=== PATIENT | female | born 1975 | race Two or more races ===

== ENCOUNTER 2017-12-07 16:54 | Emergency (ER) | payer OTHER ==
[2017-12-07 17:08] VITALS: BP 131/90
--- NOTE | 2017-12-07 17:09 | EDPHY ---
H & P Time Seen by Provider: 12/07/17 17:08 HPI/ROS: CHIEF COMPLAINT: Right eye redness HISTORY OF PRESENT ILLNESS: This is a 42-year-old female with a history of hyperthyroidism who presents with 4 days of right eye redness. She has begun to notice some eye discomfort and itching. This morning she had some matting of the right eye, but it was not stuck shut. She has had some watery discharge but no purulent discharge. She denies trauma or foreign body. Only the right eye is affected. She has not had any visual changes. She does not have photophobia. She does not wear contact lenses or corrective lenses of any kind. Immunizations are current. No recent illnesses. No family members with similar symptoms. REVIEW OF SYSTEMS: A ten point review of systems was performed and is negative with the exception of the items mentioned in the HPI. Past medical history: Hyperthyroidism Social history: She is single. She works in a restaurant kitchen. She does not use tobacco products. General Appearance: Alert. Vital signs reviewed. Blood pressure 131/90 at triage. Eyes: Pupils equal and round, no conjunctival injection, no discharge. Anicteric. Visual Acuity: noted from Nurse's notes. 20/20 right eye, 20/15 OS. Pupils: equal round and reactive to light, pupils 2 mm. EOMI Lids: no edema or swelling, no foreign body with eversion of lids, no chalazion or hordeolum. Skin: no proptosis, no periorbital erythema or swelling, no vesicles Conjunctivae: OD with conjunctival injection involving the medial/nasal aspect. No drainage. There is a wedge shaped opaque heaped up region involving the right cornea at 4 o'clock. Cornea: exam with fluorescein shows no corneal abrasion, no dendritic branching. Anterior chamber:normal, no hyphema or hypopyon ENT, Mouth: Mucous membranes are moist, no oropharyngeal erythema or edema. Neck: No lymphadenopathy. Respiratory: Lungs are clear to auscultation. Cardiovascular: Regular rate and rhythm. Skin: Warm and dry, no rashes on exposed skin, normal color. Neurological: Alert and oriented. Moving all four extremities easily and equally. Psychiatric: Normal affect. Constitutional: Initial Vital Signs Temperature (C) 37.4 C 12/07/17 17:05 Heart Rate 69 12/07/17 17:05 Respiratory Rate 14 04/06/18 17:05 Blood Pressure 131/90 H 12/07/17 17:05 O2 Sat (%) 95 12/07/17 17:05 Allergies/Adverse Reactions: No Known Allergies Allergy (Verified 12/07/17 17:04) Home Medications: Medication Instructions Recorded Propylthiouracil 50mg (*) 12/07/17 Medical Decision Making ED Course/Re-evaluation: The appearance of her right eye is consistent with pterygium. Visual acuity is within normal limits. I do not find evidence of retained foreign body. There is no corneal abrasion identified. No hypopyon or hyphema. No subconjunctival hemorrhage. I do not think that this is conjunctivitis, scleritis, iritis, or keratitis. She is referred to Ophthalmology for further evaluation. We reviewed the danger signs that should prompt her to be re-evaluated immediately. She will use Artificial Tears. All of my encounters with this patient were carried out with a Eritrean speech language therapist assisting. Departure - Departure Disposition: Home, Routine, Self-Care Clinical Impression: Pterygium of right eye Condition: Good Instructions: Pterygium (ED) Additional Instructions: Adult Pain & Fever Control: We recommend Acetaminophen (Tylenol) and Ibuprofen (Motrin,Advil) for pain and fever control. When fever is high or pain severe, both drugs can be used at the same time, but at different intervals. Please note the time differences. Your dose is: Acetaminophen 650mg every 4 to 6 hours Ibuprofen 400mg every 6 hours with food OR Note: do not take Acetaminophen with Hydrocodone (Vicodin, Lortab) or Oycodone (Percocet). These medications also contain Acetaminophen. No more than 3000mg of Acetaminophen should be taken in 24 hours (for an adult). I am referring you to an mill roll operator, a specialist in eye problems. Call her office first thing Sunday, let the staff know that you were referred by the emergency room--you should be able to get an appointment on Sunday. If you are worse in any way--fever, worsening pain, change in vision, any new or concerning symptoms--please return and let us take another look. Use Artifical Tears (you can buy over the counter in any drugstore). Control De Dolor y Fiebre en adultos: Les recomendamos Acetaminofina (Tylenol) y Ibuprofeno (Motrin, Advil) para dolor y control de la fiebre. Cuando la fiebre es radha o el dolor es best, ambas drogas puede ser usadas a la misma vez. Por favor tenga en cuenta la diferencia de horarios en el cual deben ser tomadas. Dee dosis es: Acetaminofina [650]mg cada 4-6 horas Ibuprofeno [400]mg cada 6-8 horas con comida Nota: No tome Acetaminofina con Hydrocodone (Vicodin, Lortab) o Oxycodone ( Percocet. Estas medicinas tambien contienen Acetaminofina. No mas de 4000mg de Acetaminofina deben ser tomados en 24 horas. Le estoy recomendando con un Oftalmologo, especialista con problemas de los ojos. Llame el lunes por la maana, comenteles que estubo en la edilberto de emergencia y le josé luis ayudar para atendela rebeca maddie. Si dee condicion empeora de cualquier manera, fiebre, si incrementa el dolor, cambio en la vista, o cualquier problema nuevo son elliott sintoma, por favor regrese. Use gotas artificiales (puede adquirirlas sin receta en cualquier farmacia)/ Referrals: Janet Santiago PA [Primary Care Provider] - As per Instructions Print Language: Eritrean
== END 2017-12-07 18:10 | disposition home or self-care (01) ==
LOC: CED 16:54
DX: H11.001 Unspecified pterygium of right eye (principal)

== ENCOUNTER 2018-01-11 21:09 | Emergency (ER) | payer OTHER ==
[2018-01-11] MEDS ORDERED: FLUORESCEIN SOD/BENOXINATE HCL 20 DROPS/ML OPHT.BTL ONE (22:13)
--- NOTE | 2018-01-12 00:01 | EDPHY ---
H & P Stated Complaint: right eye redness, swelling, and pain for one month Time Seen by Provider: 01/11/18 21:30 HPI/ROS: Chief complaint: Right eye pain and redness History of present illness: This is a 42-year-old female who presents to the emergency department for right eye pain and redness. She states symptoms began a month ago. She has seen a primary care doctor and an supervisor microbiology technologists. She was initially treated with an eye antibiotic. She is now on an eye steroid that she started a few days ago. However she is concerned that symptoms have lasted for so long. She denies precipitating factors. She denies alleviating or aggravating factors. No fevers, no changes in vision, no headache, no history of trauma. Review of systems: A 10 point review of systems was obtained and other than described above was negative - Personal History LMP (Females 10-55): 15-21 Days Ago Current Tetanus/Diphtheria Vaccine: Yes Current Tetanus Diphtheria and Acellular Pertussis (TDAP): Yes - Medical/Surgical History Hx Asthma: No Hx Chronic Respiratory Disease: No Hx Diabetes: No Hx Cardiac Disease: No Hx Renal Disease: No Hx Cirrhosis: No Hx Alcoholism: No Hx HIV/AIDS: No Hx Splenectomy or Spleen Trauma: No Other PMH: THYROID, anemic - Social History Smoking Status: Never smoked - Physical Exam Exam: General Appearance: Alert and no distress. Eyes: Periorbital tissue unremarkable. The right sclera is severely injected with mild edema. Left sclera is unremarkable. No hyphema. No hypopyon. PERRLA. EOM intact. Red reflex present. Funduscopic exam grossly benign. Respiratory: Chest is non tender, lungs are clear to auscultation. Cardiac: regular rate and rhythm Musculoskeletal: Neck is supple and non tender. Extremities have full range of motion and are non tender. Skin: No rashes or lesions. Neurological: Alert and oriented x4. Cranial nerves 2-12 grossly intact. Strength and sensation intact and symmetrical. Constitutional: Initial Vital Signs Temperature (C) 36.5 C 01/11/18 21:13 Heart Rate 89 01/11/18 21:13 Respiratory Rate 16 01/11/18 21:13 Blood Pressure 157/89 H 01/11/18 21:13 O2 Sat (%) 97 01/11/18 21:13 O2 Delivery Mode Room Air Allergies/Adverse Reactions: No Known Allergies Allergy (Verified 01/11/18 21:16) Home Medications: Medication Instructions Recorded Propylthiouracil 50mg (*) 12/07/17 Ferrous Sulfate 01/11/18 Naproxen 01/11/18 Prednisolone 01/11/18 Vit D3-Vit K/Berberine/Hops 01/11/18 Medical Decision Making Procedures: Slit-lamp examination is unremarkable. Emmanuel-Pen measurement is 10 on serial measurements Visual acuity 20/25 right, 20/25 left, 20/20 bilaterally ED Course/Re-evaluation: Patient is seen under the supervision of my secondary supervising physician Dr. Gigi Vizcarra. Patient presents with a 1 month history of a painful red eye. Patient has severe injection of the sclera, the rest of her exam is unremarkable. I have consulted with our on-call steak tenderizer machine Dr. Kannan Andres. He does believe this could be an episcleritis. He recommends having patient continue the eye steroid. Patient can follow up in his clinic for further treatment. Home care is discussed with the patient. Return precautions are given. Differential Diagnosis: Included but not limited to episcleritis, conjunctivitis, allergic reaction, glaucoma Departure - Departure Disposition: Home, Routine, Self-Care Clinical Impression: Eye pain Qualifiers: Laterality: right Qualified Code(s): H57.11 - Ocular pain, right eye Condition: Good Instructions: Eye Pain (ED) Additional Instructions: Follow-up with Ophthalmology on Sunday for continued evaluation and care Por favor de hacer tashi al especialista de [employer] el para que se le aditi otro evaluacion y cuidado medico. Use Naprosyn 500 mg every 12 hr Use el medicamento Naprosyn 500mg cada 12 horas. Continue the eye drops you have been previously prescribed as they have been prescribed Continue con las gotas que le recetaron If symptoms worsen or new symptoms develop return to the emergency room for recheck Si stephanie sintomas empeoran o tiene nueos sintomas por favor de regresar al departamento de Emergencias para otra evaluacion medica. Referrals: NONE *PRIMARY CARE P,. [Primary Care Provider] - As per Instructions Kannan Andres MD [Medical Doctor] - As per Instructions
[2018-01-12 00:24] VITALS: BP 141/87
== END 2018-01-12 00:26 | disposition home or self-care (01) ==
DX: H57.11 Ocular pain, right eye (principal)